=== PATIENT | male | born 1945 | race Caucasian/White ===

== ENCOUNTER 2016-07-05 08:19 | Outpatient (CLI) | payer MEDICARE, OTHER ==
[~2016-07-05] VITALS: Ht 177.8 cm; Wt 80.7 kg
--- NOTE | 2016-07-05 10:07 | NUR ---
PT is 70 y/o male admit for 1:1 chemotherapy tx for . PT alert and oriented x3. No allergies. Lives at home with his . Hx multiple myeloma, stem cell transplant,urinary frequency,immunosuppression. at bedside. PT denies pain.
[2016-07-05 10:32] LABS: BASOPHIL % 0.4 %; EOSINOPHIL % 0.8 %; IMMATURE GRANULOCYTE % 0.4 %; LYMPHOCYTE # 1.1 K/uL (0.8-4.0); LYMPHOCYTE % 44.5 %; MONOCYTE # 0.3 K/uL (0.0-1.0); MPV 11.9 fl (9.4-12.4); NEUTROPHIL # (ANC) 1.1 K/uL (1.4-9.0); NEUTROPHIL % 42.9 %; NRBC % 0 /100WBC (0-0.00); WBC 2.5 K/uL (4.0-11.0)
[2016-07-05 10:51] LABS: ALBUMIN 2.7 gm/dL (3.5-5.0); ANION GAP 11.5 (10.0-19.0); CALCIUM 7.8 mg/dL (8.5-10.5); CREATININE 1.3 mg/dL (0.6-1.3); POTASSIUM 4.5 mMol/L (3.7-5.1); TOTAL BILIRUBIN 0.7 mg/dL (0.0-1.5); TOTAL PROTEIN 8.8 g/dL (6.0-8.4)
[2016-07-05 10:55] LABS: HEMOGLOBIN 7.3 g/dL (11.0-16.0); MCHC 33.2 gm/dL (32.0-36.5); PLATELET COUNT 48 K/uL (150-450)
[2016-07-05 10:56] LABS: RBC SEE COMM M/uL (3.50-5.50)
[2016-07-05 10:57] LABS: MCH SEE COMM pg (27.0-34.0); MCV SEE COMM fl (83.0-98.0)
--- NOTE | 2016-07-05 12:04 | NUR ---
D:Patient was admitted for chemotherapy infusion. Left chest port was accessed with 20 gauge 3/4 inch port needle. No blood return was able to be obtained at time of access despite nurse knowing she was in the correct place. Patient stated they have trouble from time to time with it giving blood return. I:Charge nurse was notified. MD was called and order for TPA to declot port was obtained. TPA was instilled at 0953. R:Blood return was obtained when port was checked at 1020. 5 ml blood was withdrawn from port and wasted as TPA insert instructed. Port was flushed with 20 ml NS. P:Premedications and chemo was given as ordered. Gt WOOTEN
--- NOTE | 2016-07-05 12:09 | NUR ---
Significant Event: Patient admitted for 1:1 chemotherapy infusion of darzalex. Patient w/ hx of multiple myeloma with relapse. Alert/oriented. Up ad marc in room. , Milagro, present at bedside. Port to left chest accessed - had to be TPA'd prior to chemo due to no blood return at time of insertion - good blood return present now. Scabs/dry skin to neck. 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 Hx frequency with urination. Hgb 7.3, Plt 48, WBC 2.5 with ANC of 1072. Educated pt on need for strict I&O and for the need for him to use urinal. Bilateral knee pneumatics on. Patient tolerating infusion thus far. Follow up:Hazardous drug precautions. Strict I&O. Monitor for any type of post infusion reaction.
--- NOTE | 2016-07-05 13:38 | NUR ---
D:Orders were received for patient to receive premedications and chemotherapy called darzalex. Patient was also to receive zometa. The patient had been well educated on the infusion process and the drugs he was going to receive by Dr. Martínez and his office staff at his office appointment last . . I:Eyal teaching info given to and reviewed with patient and his spouse on darzalex and zometa. Labs were drawn and noted. Creatinine was 1.3. Discussed with pharmacy the zometa dose and verified that we were to give 4 mg in 100 ml over 15 min vs how the preprinted orders read as 3.5 mg in 250ml NS over 30 min. Anti-cancer drug administration checklist was completed. Written consent form for chemotherapy was signed by pt. Patient was premedicated as ordered with tylenol, benadryl and solumedrol. Zometa was given while waiting for premeds to take effect. Darzalex infusion was started at 1125 per titration schedule. R:Patient tolerating infusion fine thus far. P:Will continue to monitor patient closely throughout darzalex infusion. Gt WOOTEN
--- NOTE | 2016-07-05 21:51 | NUR ---
CHEMO INFUSION COMPLETED AT 1755 BY PRIOR SHIFT WITH NO REACTION. PATIENT WATCH FOR A COUPLE HOURS AFTER INFUSION COMPLETION PER MD REQUEST FOR ANY POST INFUSION REACTION. PATIENT VSS AND AFEBRILE. NO POST INFUSION REACTIONS NOTED. PATIENT STATES HE FEELS GOOD AND HAS BEEN UP WALKING IN HALLS WITH SPOUSE. DR JOSEPH CALLED AND UPDATED ABOUT PATIENT, PATEINT OKAYED TO DISMISS. DISMISSAL INSTRUCTIONS REVIEWED WITH PATIENT AND SPOUSE. PATIENT TO TAKE DECADRON TOMORROW. IS TO CALL MD WITH ANY CHEST HEAVINESS. FOLLOW UP APPOINTMENT ALREADY SCHEDULED FOR 07/12. PATIENT VERBALIZED UNDERSTANDING.
== END 2016-07-05 21:00 | disposition disaster alternative care site (69) ==
LOC: GMSU 08:19 → GMIS 08:19
PROVIDERS: Internal Medicine Hematology & Oncology
DX: C90.02 Multiple myeloma in relapse (principal); D61.818 Other pancytopenia; G62.9 Polyneuropathy, unspecified
CPT/HCPCS: J0171; J1200; J1642; J2930; J2997; J3489; J7030; J7040; J9145

== ENCOUNTER → 2016-11-22 | Outpatient (CLI) | payer MEDICARE, OTHER ==
--- NOTE | ~2016-11-22 | ENPV ---
Vascular Lower Extremities DVT Study Procedure Demographics Patient Name AYESHA BALES Date of Study 11/22/2016 Patient Number [id number] Gender Male Date of 1945 Age 71 Visit Number [id number] Height Accession Number [id number] Weight Room Number BSA BMI Referring Yokhushboo Reyes Demetris Montoya MD Physician Physician Tanya Hedrick Physician Ordering Tanya Hedrick Dip Dyer Physician Die Tripper Shivani Martínez RDCS, RVT Conclusions Summary No evidence of deep vein thrombosis or superficial thrombophlebitis in the lower extremities bilaterally . Procedure Type of Study: Veins:Lower Extremities DVT Study, Venous Duplex Lower Extremity Bilateral. Indications for Study:Swelling of Limb and Pain in Limb. Appropriate Use Criteria:9 Patient Status:Routine. Study Location:Vascular Lab. Technical Quality:Adequate visualization. Velocities are measured in cm/s ; Diameters are measured in cm Right Lower Extremities DVT Study Measurements Right 2D and Doppler Measurements + + + + +------+------+ + !Location !Visualized!Compressibility!Thrombosis!Signal!Reflux!Reflux ! ! ! ! ! ! ! !(sec) ! + + + + +------+------+ + !GSV Thigh !Yes !Yes !None !Phasic! ! ! + + + + +------+------+ + !Common !Yes !Yes !None !Phasic! ! ! !Femoral ! ! ! ! ! ! ! + + + + +------+------+ + !Prox !Yes !Yes !None !Phasic! ! ! !Femoral ! ! ! ! ! ! ! + + + + +------+------+ + !Mid Femoral!Yes !Yes !None !Phasic! ! ! + + + + +------+------+ + !Dist !Yes !Yes !None !Phasic! ! ! !Femoral ! ! ! ! ! ! ! + + + + +------+------+ + !Popliteal !Yes !Yes !None !Phasic! ! ! + + + + +------+------+ + !Gastroc !Yes !Yes !None ! ! ! ! + + + + +------+------+ + !PTV !Yes !Yes !None ! ! ! ! + + + + +------+------+ + !Peroneal !Yes !Yes !None ! ! ! ! + + + + +------+------+ + Left Lower Extremities DVT Study Measurements Left 2D and Doppler Measurements + + + + +------+------+ + !Location !Visualized!Compressibility!Thrombosis!Signal!Reflux!Reflux ! ! ! ! ! ! ! !(sec) ! + + + + +------+------+ + !GSV Thigh !Yes !Yes !None !Phasic! ! ! + + + + +------+------+ + !Common !Yes !Yes !None !Phasic! ! ! !Femoral ! ! ! ! ! ! ! + + + + +------+------+ + !Prox !Yes !Yes !None !Phasic! ! ! !Femoral ! ! ! ! ! ! ! + + + + +------+------+ + !Mid Femoral!Yes !Yes !None !Phasic! ! ! + + + + +------+------+ + !Dist !Yes !Yes !None !Phasic! ! ! !Femoral ! ! ! ! ! ! ! + + + + +------+------+ + !Popliteal !Yes !Yes !None !Phasic! ! ! + + + + +------+------+ + !Gastroc !Yes !Yes !None ! ! ! ! + + + + +------+------+ + !PTV !Yes !Yes !None ! ! ! ! + + + + +------+------+ + !Peroneal !Yes !Yes !None ! ! ! ! + + + + +------+------+ + Signature dtt: VERONIQUE CARBAJAL dtcindy: 11/22/16 1610 Physician Self Edit
== END | disposition disaster alternative care site (69) ==
LOC: GCAR 15:58
DX: M79.662 Pain in left lower leg (principal); M79.661 Pain in right lower leg; C90.02 Multiple myeloma in relapse; G62.9 Polyneuropathy, unspecified; D64.81 Anemia due to antineoplastic chemotherapy; D69.6 Thrombocytopenia, unspecified; R53.83 Other fatigue